=== PATIENT | male | born 1980 | race Caucasian/White ===

== ENCOUNTER 2021-10-24 19:59 | Emergency (ER) | payer MEDICAID ==
[~2021-10-24] VITALS: Ht 188 cm; Wt 136.4 kg
--- NOTE | 2021-10-24 21:48 | NUR ---
PT MOVED TO BED 9. ASSUMED CARE OF PT.
[2021-10-24] MEDS ORDERED: acetaminophen 325mg tablet PO ONE (23:15)
[2021-10-24] MEDS ORDERED: HYDROcodone/acetaminophen 5mg/325mg tablet PO ONE (23:15)
[2021-10-24] MEDS ORDERED: ketorolac trometh inj. 60 MG/2 ML VIAL IM ONE (23:15)
[2021-10-24] MEDS ORDERED: ondansetron 4mg rapidly disintigrating tab PO ONE (23:15)
[2021-10-24] MEDS ORDERED: cyclobenzaprine 10mg tablet PO ONE (23:15)
[2021-10-24] MEDS ORDERED: CYCL-1 PO (23:18)
[2021-10-24] MEDS ORDERED: HYDR-3965 PO (23:18)
[2021-10-25 00:57] VITALS: BP 130/80
== END 2021-10-25 00:59 | disposition home or self-care (01) ==
LOC: ER 20:00
DX: M54.50 Low back pain, unspecified (principal); G89.29 Other chronic pain; F17.200 Nicotine dependence, unspecified, uncomplicated; Z79.899 Other long term (current) drug therapy
CPT/HCPCS: 96372; 99284; J1885

== ENCOUNTER 2022-01-16 20:24 | Emergency (ER) | payer MEDICAID ==
[~2022-01-16] VITALS: Ht 188 cm; Wt 126.0 kg
[~2022-01-16 20:24] MED LIST: CYCL-1 PO
[2022-01-16 22:48] LABS: CLARITY,URINE CLEAR (Clear); COLOR,URINE YELLOW (Yellow); GLUCOSE, URINE NEGATIVE (Neg); KETONES,URINE NEGATIVE (Neg); LEUKOCYTE ESTERASE ,URINE NEGATIVE (Neg); NITRITES, URINE NEGATIVE (Neg); OCCULT BLOOD,URINE NEGATIVE (Neg); PROTEIN,URINE NEGATIVE (Neg); UROBILINOGEN,URINE 0.2 E.U/dL (0.2-1.0)
[2022-01-16 22:52] LABS: UA COLLECTION TYPE CLN CATCH MIDSTREAM
[2022-01-16] MEDS ORDERED: iohexol 300mg/ml 100ml inj. ONE (22:59)
[2022-01-16] MEDS ORDERED: acetaminophen 325mg tablet PO ONE (23:00)
[2022-01-16 23:16] LABS: HEMOGLOBIN 15.4 g/dl (14.0-17.9); MEAN CORPUSCULAR VOLUME 99.1 FL (78-98); MEAN PLATELET VOLUME 7.4 FL (7.4-10.4); RED BLOOD COUNT 4.65 X10'6 (4.70-6.10)
[2022-01-16 23:18] LABS: BASOPHILS # (AUTO) 0.1 X10'3 (0-0.2); BASOPHILS % (AUTO) 0.9 % (0-1); EOSINOPHILS # (AUTO) 0.2 X10'3 (0-0.9); EOSINOPHILS % (AUTO) 1.7 % (0-6); HEMATOCRIT 46.1 % (42.0-52.0); LYMPHOCYTES # (AUTO) 2.9 X10'3 (1.1-4.8); LYMPHOCYTES % (AUTO) 20.5 % (21-51); MEAN CORPUSCULAR HEMOGLOBIN 33.1 PG (27.0-31.0); MEAN CORPUSCULAR HGB CONC 33.4 g/dL (33.0-36.5); MONOCYTES # (AUTO) 1.1 X10'3 (0-0.9); MONOCYTES % (AUTO) 7.6 % (2-12); NEUTROPHILS # (AUTO) 9.9 X10'3 (1.8-7.7); NEUTROPHILS % (AUTO) 69.3 % (42-75); PLATELET COUNT 262 X10'3 (140-440); RED CELL DISTRIBUTION WIDTH 14.2 % (11.5-14.5); WHITE BLOOD COUNT 14.3 X10'3 (4.5-11.0)
[2022-01-16 23:20] LABS: ALANINE AMINOTRANSFERASE 47 U/L (12-78); ALBUMIN 3.7 G/DL (3.4-5.0); ALKALINE PHOSPHATASE 54 IU/L (46-116); ANION GAP 9 (8-16); ASPARTATE AMINO TRANSFERASE 29 U/L (10-37); BILIRUBIN,TOTAL 0.5 MG/DL (0.1-1.0); BLOOD UREA NITROGEN 9 MG/DL (7-18); BUN/CREATININE RATIO 9.4 (5.4-32.0); CHLORIDE 100 MMOL/L (99-107); CREATININE 0.96 MG/DL (0.60-1.10); GLUCOSE 105 MG/DL (70-104); LIPASE 119 U/L (73-393); SODIUM 138 MMOL/L (135-145); TOTAL CARBON DIOXIDE 29.3 MMOL/L (24-32); TOTAL PROTEIN 7.3 G/DL (6.4-8.2); eGFR 86 ML/MIN
[2022-01-17] MEDS ORDERED: morphine 4 MG/ML inj SYRINge IV ONE (00:10)
--- NOTE | 2022-01-17 01:36 | NUR ---
US AT BEDSIDE
[2022-01-17 02:51] VITALS: BP 133/82
[2022-01-17] MEDS ORDERED: ORPH100T2 PO (23:25)
== END 2022-01-17 02:54 | disposition home or self-care (01) ==
LOC: ER 20:25
DX: R10.84 Generalized abdominal pain (principal); G89.29 Other chronic pain; M54.50 Low back pain, unspecified
CPT/HCPCS: 74177; 76700; 80053; 81003; 83690; 85025; 96374; 99285; J2270; J3490; Q9967

== ENCOUNTER 2022-01-17 18:30 | Emergency (ER) | payer MEDICAID ==
[~2022-01-17] VITALS: Ht 177.8 cm; Wt 110.0 kg
[2022-01-17 23:12] VITALS: BP 153/102
[2022-01-17] MEDS ORDERED: ketorolac trometh inj. 60 MG/2 ML VIAL IM ONE (23:20)
[2022-01-17] MEDS ORDERED: orphenadrine citrate 60mg/2ml inj. IM ONE (23:20)
[2022-01-17] MEDS ORDERED: ORPH100T2 PO (23:25)
== END 2022-01-17 23:49 | disposition home or self-care (01) ==
LOC: ER 18:31
DX: G89.29 Other chronic pain (principal); M54.59 Other low back pain; M62.830 Muscle spasm of back; M79.81 Nontraumatic hematoma of soft tissue
CPT/HCPCS: 96372; 99284; J1885; J2360